=== PATIENT | male | born 1985 | race Caucasian/White ===

== ENCOUNTER 2020-07-31 08:14 | Emergency (ER) | payer OTHER ==
[2020-07-31 10:07] LABS: CORONAVIRUS 2019 SARS-COV-2 POSITIVE (NEGATIVE); INFLUENZA A NAA NEGATIVE (NEGATIVE)
[2020-07-31] MEDS ORDERED: TESSALON PERLE100 M1 PO (10:50)
[2020-07-31] MEDS ORDERED: ZOFRAN4 M1 PO (10:50)
[2020-07-31] MEDS ORDERED: MEDROL 4MG DOSEP4 MG PO (10:50)
[2020-07-31] MEDS ORDERED: VENTOLIN HFA18 GM INH (10:50)
== END 2020-07-31 11:05 | disposition home or self-care (01) ==
LOC: FER 08:14
PROVIDERS: Emergency Medicine
DX: U07.1 COVID-19 (principal); F17.210 Nicotine dependence, cigarettes, uncomplicated
CPT/HCPCS: 99284; U0002